=== PATIENT | female | born 1940 | race Caucasian/White ===

== ENCOUNTER 2024-08-18 10:01 | Outpatient (CLI) | payer MEDICARE, OTHER | END 2024-08-18 23:59 | disposition home or self-care (01) | LOC: RAD 10:01 | PROVIDERS: ATTEND Orthopaedic Surgery | DX: M05.711 Rheumatoid arthritis with rheumatoid factor of right shoulder without organ or systems involvement (principal); M05.741 Rheumatoid arthritis with rheumatoid factor of right hand without organ or systems involvement; M75.121 Complete rotator cuff tear or rupture of right shoulder, not specified as traumatic; M75.122 Complete rotator cuff tear or rupture of left shoulder, not specified as traumatic; M24.412 Recurrent dislocation, left shoulder; M25.511 Pain in right shoulder; Z96.612 Presence of left artificial shoulder joint | CPT/HCPCS: 73200 ==

== ENCOUNTER 2025-01-27 05:31 | Inpatient (IN) | payer MEDICARE, OTHER ==
[2025-01-23 15:55] LABS: BASOPHILS # (AUTO) 0.1 X10'3 (0-0.2); BASOPHILS % (AUTO) 0.9 % (0-1); EOSINOPHILS # (AUTO) 0.1 X10'3 (0-0.9); EOSINOPHILS % (AUTO) 1.3 % (0-6); LYMPHOCYTES # (AUTO) 1.7 X10'3 (1.1-4.8); MEAN CORPUSCULAR HEMOGLOBIN 32.3 PG (27.0-31.0); MEAN CORPUSCULAR HGB CONC 33.1 g/dL (33.0-36.5); MEAN CORPUSCULAR VOLUME 97.5 FL (78-98); MEAN PLATELET VOLUME 8.9 FL (7.4-10.4); MONOCYTES # (AUTO) 0.7 X10'3 (0-0.9); MONOCYTES % (AUTO) 8.6 % (2-12); NEUTROPHILS # (AUTO) 5.3 X10'3 (1.8-7.7); NEUTROPHILS % (AUTO) 67.2 % (42-75); PRE OP HEMATOCRIT 38.3 % (35.0-45.0); PRE OP HEMOGLOBIN 12.7 g/dL (12.0-16.0); PRE OP PLATELET COUNT 283 X10'3 (140-440); PRE OP WHITE BLOOD COUNT 7.9 10'3 (4.8-10.8); RED BLOOD COUNT 3.93 X10'6 (4.20-5.60); RED CELL DISTRIBUTION WIDTH 12.7 % (11.5-14.5)
[2025-01-23 17:31] LABS: ALBUMIN 3.6 G/DL (3.4-5.0); ALBUMIN/GLOBULIN RATIO 1.1 (1.1-1.5); ALKALINE PHOSPHATASE 73 IU/L (46-116); BLOOD UREA NITROGEN 21 MG/DL (7-18); CALCIUM 9.4 MG/DL (8.5-10.1); CHLORIDE 106 MMOL/L (99-107); PRE OP ALT 25 U/L (30-65); PRE OP ANION GAP 8 (8-16); PRE OP AST 20 U/L (10-37); PRE OP BILIRUB, TOTAL 0.3 MG/DL (0.0-1.0); PRE OP GLUCOSE 88 MG/DL (70-104); PRE OP POTASSIUM 4.3 MMOL/L (3.4-5.1); PRE OP SODIUM 141 MMOL/L (135-145); TOTAL CARBON DIOXIDE 27.5 MMOL/L (24-32); TOTAL PROTEIN 6.8 G/DL (6.4-8.2); eGFR > 90 ML/MIN
[2025-01-27] VITALS (31 sets, daily range): BP systolic 101–141; BP diastolic 59–94; PULSE 55–93; RESP 12–20; TEMP 97.5–98.2; O2SAT 88–99
[~2025-01-27] VITALS: Ht 152.4 cm; Wt 63.1 kg
[2025-01-27] MEDS: tranexamic acid 650mg tablet PO ONE (05:30)
[~2025-01-27 05:31] MED LIST: ATOR40TA72 PO; EZET10TA6 PO; LEVO25TA7 PO; SENN-25 PO; VALS1TAB73 PO
[2025-01-27] MEDS: ceFAZolin 2gm in dextrose, iso 50 ML IV ONE (05:42)
[2025-01-27] MEDS: famotidine 20mg tablet PO ONE (06:05)
[2025-01-27] MEDS: ringers solution, lacted 1,000 ML IV SCH ×2 (06:05→07:15)
[2025-01-27] MEDS: vancomycin/NS 1 GM ADD-VANTAGE 250 ML IV ONE (06:05)
[2025-01-27] MEDS ORDERED: ROPIVAcaine 0.5% (5mg/ml) 30ml vial ONE ×2 (06:43→08:42)
[2025-01-27] MEDS ORDERED: ketorolac trometh 30MG/ML vial 30 MG/ML VIAL ONE (06:43)
[2025-01-27] MEDS ORDERED: cloNIDine hcl/PF 100mcg/ml inj ONE (07:12)
[2025-01-27] MEDS ORDERED: ondansetron/PF 4mg/2ml inj IV PRN (07:15)
[2025-01-27] MEDS ORDERED: meperidine/PF 25mg/ml syringe IV PRN ×3 (07:15)
[2025-01-27] MEDS ORDERED: morphine 2 MG/ML inj. syringe IV PRN (07:15)
[2025-01-27] MEDS ORDERED: labetalol 20mg/4ml (5mg/ml) syringe IV PRN (07:15)
[2025-01-27] MEDS ORDERED: hydrALAZINE 20mg/ml inj. IV PRN (07:15)
[2025-01-27] MEDS ORDERED: proCHLORperazine 10 MG/2 ml inj IV PRN (07:15)
[2025-01-27] MEDS ORDERED: morphine 4 MG/ML inj SYRINge IV PRN (07:15)
[2025-01-27] MEDS ORDERED: sevoflurane 250ml liquid IH ONE (07:52)
[2025-01-27] MEDS ORDERED: fentaNYL/PF 50MCG/1 ML 2ML syringe ONE (08:09)
[2025-01-27] MEDS ORDERED: midazolam 1 mg/ML 2ml injection ONE (08:09)
[2025-01-27] MEDS ORDERED: dexamethasone sod phosphate 4mg/ml inj. ONE ×2 (08:42→08:44)
[2025-01-27] MEDS ORDERED: 0.9 % SODIUM CHLORIDE 10 ML VIAL ONE (08:42)
[2025-01-27] MEDS ORDERED: LIDOcaine 2% (20mg/ml) 5ml vial ONE (08:43)
[2025-01-27] MEDS ORDERED: propofol inj 20 ML IV ONE (08:43)
[2025-01-27] MEDS ORDERED: rocuronium 10mg/ml inj IV ONE (08:43)
[2025-01-27] MEDS ORDERED: ePHEDrine 50MG/ML INJ. ONE (08:43)
[2025-01-27] MEDS ORDERED: ondansetron/PF 4mg/2ml inj ONE (08:44)
[2025-01-27] MEDS: ROPIVAcaine 0.5% (5mg/ml) 30ml vial IJ ONE (08:46)
[2025-01-27] MEDS: ROPIVAcaine 0.2%/PF PUMP/bolus 545 ML INTERSCALE SCH (09:54)
[2025-01-27] MEDS ORDERED: sennosides 8.6mg tablet PO PRN (10:10)
[2025-01-27] MEDS ORDERED: acetaminophen 325mg tablet PO PRN (10:10)
[2025-01-27] MEDS ORDERED: bisacodyl 10mg suppository rectal RC PRN (10:10)
[2025-01-27] MEDS ORDERED: diphenhydrAMINE 25mg capsule PO PRN ×2 (10:10)
[2025-01-27] MEDS: acetaminophen 1,000mg/100ml IV 100 ML IV PRN (10:23)
[2025-01-27] MEDS: acetaminophen 325mg tablet PO SCH (14:00)
[2025-01-27] MEDS: potassium cl 20mEq in 1/2 NS 1,000 ML IV SCH (14:32)
[2025-01-27] MEDS: ceFAZolin/D5W- 1GM premix 50 ML IV SCH (16:39)
[2025-01-27] MEDS ORDERED: vancomycin/NS 1 GM ADD-VANTAGE 250 ML IV SCH (20:00)
[2025-01-27] MEDS: vancomycin/NS 1 GM ADD-VANTAGE 250 ML X 1 DOSE IV SCH (20:22)
[2025-01-27] MEDS: sennosides 8.6mg tablet PO SCH (20:22)
[2025-01-28 02:00] VITALS: BP 111/63; PULSE 72; RESP 16; TEMP 97.7; O2SAT 96
[2025-01-28] MEDS: oxyCODONE IR 5mg (immed. release) tablet PO PRN (05:06)
[2025-01-28 06:00] VITALS: BP 122/71; PULSE 67; RESP 17; TEMP 97.3; O2SAT 98
[2025-01-28 06:08] LABS: BASOPHILS % (AUTO) 0.3 % (0-1); EOSINOPHILS % (AUTO) 0.4 % (0-6); HEMATOCRIT 26.4 % (35.0-45.0); HEMOGLOBIN 8.8 g/dl (12.0-16.0); LYMPHOCYTES # (AUTO) 1.7 X10'3 (1.1-4.8); MEAN CORPUSCULAR HEMOGLOBIN 32.8 PG (27.0-31.0); MEAN CORPUSCULAR HGB CONC 33.4 g/dL (33.0-36.5); MEAN CORPUSCULAR VOLUME 98.2 FL (78-98); MEAN PLATELET VOLUME 9.3 FL (7.4-10.4); MONOCYTES # (AUTO) 1.3 X10'3 (0-0.9); NEUTROPHILS % (AUTO) 76.3 % (42-75); PLATELET COUNT 203 X10'3 (140-440); RED BLOOD COUNT 2.69 X10'6 (4.20-5.60); RED CELL DISTRIBUTION WIDTH 12.7 % (11.5-14.5); WHITE BLOOD COUNT 13.1 X10'3 (4.5-11.0)
[2025-01-28 06:34] LABS: ANION GAP 7 (8-16); CHLORIDE 106 MMOL/L (99-107); POTASSIUM 4.8 MMOL/L (3.5-5.1); SODIUM 139 MMOL/L (135-145); TOTAL CARBON DIOXIDE 26.5 MMOL/L (24-32)
[2025-01-28] MEDS: levoTHYROXINE 25mcg tablet PO SCH (07:15)
[2025-01-28] MEDS: HYDROchlorothiazide 12.5mg capsule PO SCH (08:00)
[2025-01-28] MEDS ORDERED: celeCOXIB 100mg capsule PO SCH (08:00)
[2025-01-28] MEDS: losartan 50mg tablet PO SCH (08:00)
[2025-01-28] MEDS: atorvastatin 20mg tablet PO SCH (09:23)
[2025-01-28] MEDS: aspirin 325mg tablet PO SCH (09:23)
[2025-01-28] MEDS: ezetimibe 10mg tablet PO SCH (09:23)
[2025-01-28 10:00] VITALS: BP 106/55; PULSE 62; RESP 16; TEMP 97.8; O2SAT 99
[2025-01-28] MEDS: HYDROmorphone inj. 0.5 MG/0.5 ML DISP.SYRIN IV PRN (14:09)
[2025-01-28 18:30] VITALS: BP 100/53; PULSE 64; RESP 16; TEMP 98.1; O2SAT 94
[2025-01-28] MEDS: celeCOXIB 100mg capsule PO SCH (20:10)
[2025-01-28 22:00] VITALS: BP 107/56; PULSE 70; RESP 16; TEMP 98.4; O2SAT 91
[2025-01-29 06:00] VITALS: BP 150/71; PULSE 66; RESP 18; TEMP 97.9; O2SAT 98
[2025-01-29 06:01] LABS: BASOPHILS % (AUTO) 0.5 % (0-1); EOSINOPHILS # (AUTO) 0.2 X10'3 (0-0.9); EOSINOPHILS % (AUTO) 2.3 % (0-6); HEMOGLOBIN 7.7 g/dl (12.0-16.0); LYMPHOCYTES # (AUTO) 1.5 X10'3 (1.1-4.8); LYMPHOCYTES % (AUTO) 17.8 % (21-51); MEAN CORPUSCULAR HEMOGLOBIN 33.3 PG (27.0-31.0); MEAN CORPUSCULAR HGB CONC 33.3 g/dL (33.0-36.5); MEAN CORPUSCULAR VOLUME 99.8 FL (78-98); MEAN PLATELET VOLUME 9.7 FL (7.4-10.4); MONOCYTES # (AUTO) 0.9 X10'3 (0-0.9); NEUTROPHILS # (AUTO) 5.8 X10'3 (1.8-7.7); NEUTROPHILS % (AUTO) 68.4 % (42-75); PLATELET COUNT 152 X10'3 (140-440); RED BLOOD COUNT 2.31 X10'6 (4.20-5.60); RED CELL DISTRIBUTION WIDTH 13.1 % (11.5-14.5); WHITE BLOOD COUNT 8.4 X10'3 (4.5-11.0)
[2025-01-29 08:00] VITALS: RESP 16; O2SAT 98
[2025-01-29 10:00] VITALS: BP 111/63; PULSE 73; RESP 16; TEMP 97.6; O2SAT 92
[2025-01-29] MEDS ORDERED: acetaminophen 325mg tablet PO PRN (13:15)
[2025-01-29 18:00] VITALS: BP 123/69; PULSE 71; RESP 17; TEMP 97.6; O2SAT 94
[2025-01-29 20:00] VITALS: RESP 18; O2SAT 95
[2025-01-29 22:00] VITALS: BP 116/68; PULSE 74; RESP 15; TEMP 98.8; O2SAT 93
[2025-01-30] VITALS (10 sets, daily range): BP systolic 108–144; BP diastolic 56–76; PULSE 76–89; RESP 14–22; TEMP 97.8–98.8; O2SAT 93–96
[2025-01-30 06:09] LABS: BASOPHILS % (AUTO) 0.3 % (0-1); EOSINOPHILS # (AUTO) 0.1 X10'3 (0-0.9); EOSINOPHILS % (AUTO) 1.7 % (0-6); LYMPHOCYTES # (AUTO) 1.3 X10'3 (1.1-4.8); LYMPHOCYTES % (AUTO) 15.5 % (21-51); MEAN CORPUSCULAR HEMOGLOBIN 33.3 PG (27.0-31.0); MEAN CORPUSCULAR VOLUME 98.1 FL (78-98); MEAN PLATELET VOLUME 9.4 FL (7.4-10.4); MONOCYTES # (AUTO) 0.8 X10'3 (0-0.9); NEUTROPHILS % (AUTO) 72.5 % (42-75); PLATELET COUNT 155 X10'3 (140-440); RED BLOOD COUNT 1.89 X10'6 (4.20-5.60); RED CELL DISTRIBUTION WIDTH 13.1 % (11.5-14.5); WHITE BLOOD COUNT 8.3 X10'3 (4.5-11.0)
[2025-01-30 06:20] LABS: HEMATOCRIT 18.6 % (35.0-45.0); HEMOGLOBIN 6.3 g/dl (12.0-16.0)
[2025-01-30] MEDS: ROPIVAcaine 0.2% (10 MG/5 ML) BOLUS INJECTION INTERSCALE PRN (08:40)
[2025-01-30] MEDS: HYDROmorphone 1 mg/ml syringe IV PRN (12:51)
[2025-01-30] MEDS: ondansetron/PF 4mg/2ml inj IV PRN (12:53)
[2025-01-30 18:19] LABS: HEMOGLOBIN 7.3 g/dl (12.0-16.0); MEAN CORPUSCULAR HEMOGLOBIN 33.5 PG (27.0-31.0); MEAN CORPUSCULAR HGB CONC 34.7 g/dL (33.0-36.5); MEAN CORPUSCULAR VOLUME 96.6 FL (78-98); MEAN PLATELET VOLUME 9.3 FL (7.4-10.4); PLATELET COUNT 159 X10'3 (140-440); RED BLOOD COUNT 2.18 X10'6 (4.20-5.60); RED CELL DISTRIBUTION WIDTH 13.3 % (11.5-14.5); WHITE BLOOD COUNT 8.6 X10'3 (4.5-11.0)
[2025-01-30] MEDS: oxyCODONE IR 5mg (immed. release) tablet PO PRN (21:17)
[2025-01-31] VITALS (7 sets, daily range): BP systolic 117–136; BP diastolic 40–77; PULSE 60–72; RESP 16–18; TEMP 97.7–98.3; O2SAT 96–98
[2025-01-31 06:10] LABS: BASOPHILS % (AUTO) 0.5 % (0-1); EOSINOPHILS # (AUTO) 0.2 X10'3 (0-0.9); EOSINOPHILS % (AUTO) 2.8 % (0-6); LYMPHOCYTES # (AUTO) 1.1 X10'3 (1.1-4.8); LYMPHOCYTES % (AUTO) 14.3 % (21-51); MEAN CORPUSCULAR HEMOGLOBIN 33.1 PG (27.0-31.0); MEAN CORPUSCULAR VOLUME 97.4 FL (78-98); MEAN PLATELET VOLUME 9.2 FL (7.4-10.4); MONOCYTES # (AUTO) 0.8 X10'3 (0-0.9); MONOCYTES % (AUTO) 10.5 % (2-12); NEUTROPHILS # (AUTO) 5.6 X10'3 (1.8-7.7); NEUTROPHILS % (AUTO) 71.9 % (42-75); PLATELET COUNT 181 X10'3 (140-440); RED BLOOD COUNT 2.12 X10'6 (4.20-5.60); RED CELL DISTRIBUTION WIDTH 13.6 % (11.5-14.5); WHITE BLOOD COUNT 7.8 X10'3 (4.5-11.0)
[2025-01-31 06:12] LABS: HEMATOCRIT 20.6 % (35.0-45.0)
[2025-01-31] MEDS: magnesium hydroxide 30ml (MOM) UD suspension PO PRN (12:32)
[2025-01-31 15:03] LABS: BASOPHILS % (AUTO) 0.5 % (0-1); EOSINOPHILS # (AUTO) 0.2 X10'3 (0-0.9); HEMATOCRIT 28.1 % (35.0-45.0); HEMOGLOBIN 9.6 g/dl (12.0-16.0); LYMPHOCYTES # (AUTO) 1.1 X10'3 (1.1-4.8); LYMPHOCYTES % (AUTO) 11.2 % (21-51); MEAN CORPUSCULAR HEMOGLOBIN 33.2 PG (27.0-31.0); MEAN CORPUSCULAR HGB CONC 34.3 g/dL (33.0-36.5); MEAN CORPUSCULAR VOLUME 96.7 FL (78-98); MEAN PLATELET VOLUME 9.2 FL (7.4-10.4); MONOCYTES % (AUTO) 9.8 % (2-12); NEUTROPHILS # (AUTO) 7.5 X10'3 (1.8-7.7); NEUTROPHILS % (AUTO) 76.5 % (42-75); PLATELET COUNT 203 X10'3 (140-440); RED CELL DISTRIBUTION WIDTH 13.5 % (11.5-14.5); WHITE BLOOD COUNT 9.8 X10'3 (4.5-11.0)
[2025-01-31] MEDS ORDERED: JUVEN Smoothie Arginine/Glut./Ca2+Bmb (Juven 19.3pkt) 240ml cup PO SCH (17:30)
[2025-02-01] MEDS ORDERED: lactose-reduced food (Ensure High Protein) 237ml bottle PO SCH (12:30)
== END 2025-01-31 17:50 | DRG 483 ==
LOC: PAS IN 05:31 → ORTHO 4S 13:05
PROVIDERS: ADMIT Orthopaedic Surgery; ATTEND Orthopaedic Surgery
PROC: 0RRJ00Z Replacement of Right Shoulder Joint with Reverse Ball and Socket Synthetic Substitute, Open Approach (ICD-10-PCS; principal; 2025-01-27 07:52)
PROC: 30233N1 Transfusion of Nonautologous Red Blood Cells into Peripheral Vein, Percutaneous Approach (ICD-10-PCS; 2025-01-30)
DX: M19.011 Primary osteoarthritis, right shoulder (principal); M75.121 Complete rotator cuff tear or rupture of right shoulder, not specified as traumatic; D64.9 Anemia, unspecified
CPT/HCPCS: 36415; 36430; 80051; 80053; 82948; 84443; 85025; 85027; 86885; 86900; 86901; 86920; 87081; 92508; 92616; 97110; 97116; 97162; A4565; A4615; A4618; A6253; A6258; A6446; A7000; C1776; G0378; J0131; J0690; J0735; J1100; J1171; J1885; J2003; J2250; J2405; J2704; J2710; J2795; J3010; J3370; J3480; J3490; J7030; J7040; J7120; P9016